=== PATIENT | male | born 1995 | race Caucasian/White ===

== ENCOUNTER 2017-08-29 09:38 | Emergency (ER) | payer BC | END 2017-08-29 10:30 | disposition home or self-care (01) | LOC: FTE 09:38 | DX: J01.10 Acute frontal sinusitis, unspecified (principal); J01.00 Acute maxillary sinusitis, unspecified; J40 Bronchitis, not specified as acute or chronic; J03.90 Acute tonsillitis, unspecified; F17.210 Nicotine dependence, cigarettes, uncomplicated | CPT/HCPCS: 99284 ==

== ENCOUNTER 2017-09-12 22:01 | Emergency (ER) | payer BC ==
[2017-09-12] MEDS: IBUPROFEN 600 MG TAB PO (23:45)
== END 2017-09-12 23:47 | disposition home or self-care (01) ==
LOC: FTE 22:01
DX: J02.9 Acute pharyngitis, unspecified (principal)
CPT/HCPCS: 99283

== ENCOUNTER 2018-01-03 23:01 | Emergency (ER) | payer BC ==
[2018-01-04] MEDS: ACETAMINOPHEN 500 MG TAB PO (02:00)
== END 2018-01-04 02:08 | disposition home or self-care (01) ==
LOC: FTE 23:01
DX: J20.9 Acute bronchitis, unspecified (principal)
CPT/HCPCS: 99282

== ENCOUNTER 2018-06-18 07:20 | Emergency (ER) | payer BC | END 2018-06-18 08:23 | disposition home or self-care (01) | LOC: FTE 07:20 | DX: J02.9 Acute pharyngitis, unspecified (principal); Z87.891 Personal history of nicotine dependence | CPT/HCPCS: 99283 ==

== ENCOUNTER 2018-07-24 08:34 | Emergency (ER) | payer BC ==
[2018-07-24] MEDS: DIPHTH/TET/ACEL PERTUSS (ADULT) 0.5 ML VIAL IM* (09:20)
== END 2018-07-24 10:11 | disposition home or self-care (01) ==
LOC: FTE 10:11
DX: S00.81XA Abrasion of other part of head, initial encounter (principal); W20.8XXA Other cause of strike by thrown, projected or falling object, initial encounter; Y92.89 Other specified places as the place of occurrence of the external cause; Z23 Encounter for immunization
CPT/HCPCS: 90471; 90715; 99283-25

== ENCOUNTER 2018-09-28 09:37 | Emergency (ER) | payer BC ==
[2018-09-28] MEDS: IBUPROFEN 800 MG TAB PO (10:01)
[2018-09-28] MEDS: ACETAMINOPHEN 500 MG TAB PO (10:01)
[2018-09-28 10:43] LABS: MONOTEST Negative (NEG)
== END 2018-09-28 11:02 | disposition home or self-care (01) ==
LOC: FTE 11:02
DX: J02.0 Streptococcal pharyngitis (principal)
CPT/HCPCS: 86308; 87400; 87880; 99283

== ENCOUNTER 2018-09-29 21:21 | Emergency (ER) | payer BC ==
[2018-09-29] MEDS: DEXAMETHASONE 10 MG/ML 1 ML INJ IV (22:21)
[2018-09-29] MEDS: SOD CHLORIDE 0.9% 1,000 ML IV (22:21)
[2018-09-29] MEDS: KETOROLAC 15 MG INJ IV (22:22)
[2018-09-29] MEDS: PENICILLIN G BENZ 1.2 MIL UNIT SYG IM (22:48)
== END 2018-09-30 01:28 | disposition home or self-care (01) ==
LOC: E/R 09-30 01:28
DX: J02.0 Streptococcal pharyngitis (principal)
CPT/HCPCS: 36415; 83605; 96372; 96374; 96375; 99284-25